=== PATIENT | female | born 1995 | race Caucasian/White ===

== ENCOUNTER 2016-07-31 10:00 | Observation (INO) | payer OTHER ==
[2016-07-31 10:13] VITALS: BP 114/62; PULSE 125
== END 2016-07-31 11:15 | disposition home or self-care (01) ==
LOC: OB 10:00 → UNDOADMOB 10:00 → UNDODISOB 11:15
PROVIDERS: ADMIT Family Medicine; ATTEND Family Medicine
DX: Z34.83 Encounter for supervision of other normal pregnancy, third trimester (principal)
CPT/HCPCS: 80307; G0378

== ENCOUNTER 2016-08-07 12:15 | Observation (INO) | payer OTHER ==
[2016-08-07] MEDS ORDERED: Sodium Chloride 0.9% 1000 ML 1,000 ML IV STA (12:40)
[2016-08-07 13:19] LABS: ALBUMIN 2.2 g/dL (3.4-5.0); ALKALINE PHOSPHATASE 178 U/L (46-116); ANION GAP 14.6 MEQ/L (5-15); BILIRUBIN,TOTAL 0.2 mg/dL (0.2-1.0); BLOOD UREA NITROGEN 6 mg/dL (9-20); CHLORIDE 106 mEq/L (98-107); Carbon Dioxide 23.1 mEq/L (21-32); Glucose 86 MG/DL (70-110); Potassium 4.1 mEq/L (3.5-5.1); SGOT/AST 19 U/L (15-37); SGPT/ALT 10 U/L (12-78); SODIUM 140 mEq/L (136-145); Total Protein 6.7 gm/dL (6.4-8.2)
[2016-08-07 13:31] VITALS: O2SAT 99
[2016-08-07 13:37] LABS: Mean Cell Volume 77.2 fl (78-100); Mean Platelet Volume 8.5 fl (6-9.5); Platelet Count 414 K/mm3 (150-450); Red Blood Count 3.56 M/mm3 (4.1-5.4); Red Cell Distribution Width 14.7 % (11.5-14.0); White Blood Count 14.7 K/mm3 (4.0-10.5)
[2016-08-07 13:41] LABS: Mean Corpuscular Hemoglobin 23.5 pg (26-32)
[2016-08-07 14:08] LABS: Bacteria Moderate; Clue Cells None Seen; Trichomonas Many
[2016-08-07 14:09] LABS: Yeast Moderate
[2016-08-07] MEDS: Lactated Ringers 1,000 ML IV SCH ×2 (14:10→23:21)
[2016-08-07 14:34] LABS: ANISOCYTOSIS 1+; BAND 3 % (0.0-2.0); Eosinophil 4 % (0.00-3.0); Hypochromia 2+; Platelet Estimate NORMAL (NORMAL); Polychromasia 2+; Total Cells Counted 100
[2016-08-07 14:35] LABS: Microcytosis 2+
[2016-08-07 14:45] LABS: COMPLETE URINE MICROSCOPIC? YES; Collection Type VOID
[2016-08-07 14:46] LABS: Bacteria MODERATE /HPF (NEGATIVE); Epithelial Cells MANY /HPF (FEW); Mucus MANY /HPF (NEGATIVE); Trichomonas PRESENT /HPF (NEGATIVE); Yeast MODERATE /HPF (NEGATIVE)
[2016-08-07 15:23] LABS: CHLAMYDIA URINE NEGATIVE; GC URINE NEGATIVE
[2016-08-07] MEDS: FLAGYL 500 MG IVPB 100 ML IV SCH (15:35)
[2016-08-07] MEDS ORDERED: ROCEPHIN 1 Gm-D5w 50 ml Bag** 50 ML IV SCH (18:30)
[2016-08-07] MEDS ORDERED: TYLENOL 325 MG PO PRN (19:24)
[2016-08-07] MEDS ORDERED: DIFLUCAN PO ONE (23:03)
[2016-08-07] MEDS ORDERED: Diflucan 100 MG ONE (23:07)
[2016-08-07] MEDS ORDERED: Diflucan 100 MG PO ONE (23:12)
[2016-08-08] MEDS: FLAGYL 500 MG IVPB 100 ML IV SCH (02:55)
[2016-08-08 05:20] LABS: Mean Cell Volume 77.3 fl (78-100); Mean Platelet Volume 8.3 fl (6-9.5); Platelet Count 379 K/mm3 (150-450); Red Blood Count 3.35 M/mm3 (4.1-5.4); Red Cell Distribution Width 14.5 % (11.5-14.0)
[2016-08-08 05:26] LABS: Mean Corpuscular Hemoglobin 23.2 pg (26-32)
[2016-08-08 05:45] LABS: ANISOCYTOSIS 1+; ATYPICAL LYMPHS 6 %; BAND 1 % (0.0-2.0); Eosinophil 3 % (0.00-3.0); Hypochromia 2+; Platelet Estimate NORMAL (NORMAL); Polychromasia 1+; Total Cells Counted 100
[2016-08-08] MEDS ORDERED: ROCEPHIN 1 Gm-D5w 50 ml Bag** 50 ML IV SCH (10:00)
[2016-08-08] MEDS ORDERED: Venofer 100 MG/5 ML*** 300 MG in Sodium Chloride 0.9% 250 ML 250 ML IV SCH (10:30)
[2016-08-08 13:36] VITALS: BP 110/57; PULSE 116
== END 2016-08-08 14:25 | disposition home or self-care (01) ==
LOC: MED SURG 12:15
PROVIDERS: ADMIT Family Medicine; ATTEND Family Medicine
DX: O26.893 Other specified pregnancy related conditions, third trimester (principal); R00.0 Tachycardia, unspecified; E86.0 Dehydration; O34.03 Maternal care for unspecified congenital malformation of uterus, third trimester; Q51.3 Bicornate uterus; A59.9 Trichomoniasis, unspecified; O23.43 Unspecified infection of urinary tract in pregnancy, third trimester; Z3A.37 37 weeks gestation of pregnancy; O99.013 Anemia complicating pregnancy, third trimester
CPT/HCPCS: 36415; 80053; 80307; 81000; 84550; 85025; 87081; 87086; 87210; 87491; 87591; G0378; J0696; J1756

== ENCOUNTER 2016-08-21 17:06 | Inpatient (IN) | payer MEDICAID ==
[2016-08-21] MEDS ORDERED: BRETHINE 1 MG/ML SQ PRN (19:55)
[2016-08-21 20:48] LABS: Mean Cell Volume 77.9 fl (78-100); Mean Platelet Volume 9.3 fl (6-9.5); Platelet Count 329 K/mm3 (150-450); Red Blood Count 3.89 M/mm3 (4.1-5.4); White Blood Count 9.7 K/mm3 (4.0-10.5)
[2016-08-21 20:52] LABS: Mean Corpuscular Hemoglobin 23.6 pg (26-32)
[2016-08-21] MEDS ORDERED: Cervidil 10 MG VAG SCH (22:00)
[2016-08-21 22:40] LABS: Eosinophil 3 % (0.00-3.0); Platelet Estimate NORMAL (NORMAL); Total Cells Counted 100
[2016-08-22] MEDS ORDERED: OFIRMEV IV ONE (08:00)
[2016-08-22] MEDS ORDERED: Pitocin 10 UNITS/ML IV ONE (08:00)
[2016-08-22] MEDS ORDERED: EPINEPHRINE 1:1000 1 ML AMP IV ONE (08:00)
[2016-08-22] MEDS ORDERED: Ephedrine Sulfate 50 MG/ML IV ONE (08:00)
[2016-08-22] MEDS ORDERED: Decadron 4 MG INJ IV ONE (08:00)
[2016-08-22] MEDS ORDERED: PHENYLEPHRINE HCL IV ONE (08:00)
[2016-08-22] MEDS ORDERED: Sodium Chloride 0.9(Preservative Free) 10 ML IJ ONE (08:00)
[2016-08-22] MEDS ORDERED: Zofran 4 MG/2 ML VIAL IV ONE (08:00)
[2016-08-22] MEDS: Lactated Ringers 1,000 ML IV SCH ×2 (08:58→14:30)
[2016-08-22] MEDS ORDERED: PITOCIN 30 UNITS/ LR 500 ML 500 ML IV SCH (09:00)
[2016-08-22] MEDS ORDERED: BICITRA 30 ML CUP PO SCH (18:00)
[2016-08-22] MEDS ORDERED: Pepcid 20 MG VIAL IV SCH (18:00)
[2016-08-22] MEDS ORDERED: Reglan 10 MG/2 ML IV SCH (18:00)
[2016-08-22] MEDS ORDERED: Lactated Ringers 1,000 ML IV SCH (18:00)
[2016-08-22 18:35] LABS: Mean Cell Volume 77.3 fl (78-100); Mean Corpuscular Hemoglobin 24.3 pg (26-32); Mean Platelet Volume 9.1 fl (6-9.5); Platelet Count 332 K/mm3 (150-450); Red Blood Count 4.19 M/mm3 (4.1-5.4); Red Cell Distribution Width 18.3 % (11.5-14.0); White Blood Count 12.3 K/mm3 (4.0-10.5)
[2016-08-22 18:41] LABS: INR 0.97 (0.8-3.0); PROTIME 10.9 SECONDS (9.95-12.35)
[2016-08-22 18:44] LABS: PTT 23.5 SECONDS (25.3-37.0)
[2016-08-22] MEDS ORDERED: KEFZOL 1 GM ONE (19:21)
[2016-08-22] MEDS ORDERED: BENADRYL 50 MG/ML IV PRN (20:50)
[2016-08-22] MEDS ORDERED: CLARITIN 10 MG PO PRN (20:50)
[2016-08-22] MEDS ORDERED: HOLD NARCOTIC ANALGESICS AND SEDATIVES X24 HR MC PRN (20:50)
[2016-08-22] MEDS ORDERED: Zofran 4 MG/2 ML VIAL IV PRN (20:50)
[2016-08-22] MEDS ORDERED: Nubain 10 MG/ML IV PRN (20:50)
[2016-08-22] MEDS ORDERED: Sodium Chloride 0.9% 10 ML FLUSH Syringe IJ PRN (20:50)
[2016-08-22] MEDS ORDERED: DEMEROL 50 MG IV PRN (20:50)
[2016-08-22] MEDS ORDERED: MORPHINE SULFATE 2 MG INJ IV PRN (20:50)
[2016-08-22] MEDS ORDERED: Narcan 0.4 MG/ML IV PRN (20:50)
[2016-08-22] MEDS ORDERED: ACYCLOVIR 800 MG PO SCH (22:00)
[2016-08-22] MEDS ORDERED: Dermoplast Spray TP PRN (23:26)
[2016-08-22] MEDS ORDERED: LANSINOH 40 GM TOP PRN (23:26)
[2016-08-22] MEDS ORDERED: Dulcolax 10 MG SUPP PR PRN (23:26)
[2016-08-22] MEDS ORDERED: Anucort-HC SUPPOSITORY PR PRN (23:26)
[2016-08-22] MEDS ORDERED: Restoril 15 MG PO PRN (23:26)
[2016-08-22] MEDS ORDERED: CORTISONE 1% CREAM TP PRN (23:26)
[2016-08-22] MEDS ORDERED: Mylicon 80MG PO PRN (23:26)
[2016-08-22] MEDS ORDERED: TYLENOL EXTRA STRENGTH 500 MG PO PRN (23:26)
[2016-08-22] MEDS ORDERED: Ambien 10 MG PO PRN (23:26)
[2016-08-22] MEDS ORDERED: TUCKS TP PRN (23:26)
[2016-08-22 23:44] LABS: COMPLETE URINE MICROSCOPIC? NO; Collection Type CATH
[2016-08-23] MEDS: Dextrose 5%-Lr IV Solution 1000 ML 1,000 ML IV SCH ×2 (01:01→09:33)
[2016-08-23 05:53] LABS: Mean Cell Volume 77.7 fl (78-100); Mean Platelet Volume 9.4 fl (6-9.5); Platelet Count 314 K/mm3 (150-450); Red Blood Count 3.49 M/mm3 (4.1-5.4); Red Cell Distribution Width 17.7 % (11.5-14.0); White Blood Count 14.1 K/mm3 (4.0-10.5)
[2016-08-23] MEDS ORDERED: Astramorph-Pf 5 MG/10 ML IV ONE (08:00)
[2016-08-23] MEDS ORDERED: SUBLIMAZE 100 MCG/2 ML IV ONE (08:00)
[2016-08-23] MEDS ORDERED: Adacel Vial IM ONE (09:00)
--- NOTE | 2016-08-23 09:12 | OP ---
SURGERY DATE/TIME: 08/22/20161954 PREOPERATIVE DIAGNOSES: 1) Term intrauterine . 2) History of herpes infection. 3) Possible developing recurrent herpes infection. POSTOPERATIVE DIAGNOSES: 1) Term intrauterine . 2) History of herpes infection. 3) Possible developing recurrent herpes infection. 4) Delivered. PROCEDURE: Primary lower uterine segment transverse incision section. SURGEON: Dr. Rodney. ANESTHESIA: Spinal. HISTORY: The patient is a 20 year old white female who presented to the hospital for induction for term intrauterine . However during the induction the patient reported that she felt like she was having some burning and tingling in an area where she previously had herpes infection and therefore we were concerned for the patient developing herpetic infection and the danger of developing the baby through the vaginal area was too great for the possibility of transmission of herpes to the baby. The patient was therefore discussed the risks of the procedure including risk of wound infection, bleeding requiring transfusion, and possible injury to any intra-abdominal organs. The patient verbalized her understanding and desired to have the procedure performed. DESCRIPTION OF PROCEDURE: The patient was prepped and draped in the supine position. After adequate regional anesthesia was confirmed, a Pfannenstiel incision was made and carried down sharply through the fascia which was divided in a horizontal fashion. The rectus muscles were then bluntly and sharply dissected away from the overlying fascia and bluntly retracted laterally. The peritoneal cavity was then entered. A bladder flap was developed and the bladder was retracted inferiorly. The uterus was scored in a horizontal fashion and entered in the midline. The wound was extended using blunt dissection. A white male infant was delivered through the abdominal wound. The cord was doubly clamped and divided between the clamps and the baby was handed off for further care. The placenta was then manually removed from the uterus. 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 The uterine wound was then repaired using 1-0 chromic suture in a running, interlocking fashion. The cul-de-sac area was then swabbed clear of blood and amniotic fluid and the uterus was replaced in the abdominal cavity. Paracolic gutters were also swabbed clear of blood and amniotic fluid. The peritoneum was then repaired using 3-0 chromic suture in a running fashion. The fascia was repaired using 0 Vicryl suture in a running fashion. The skin was reapproximated using 4-0 Vicryl suture in a subcuticular fashion and reinforced with Steri-Strips. The sponge, needle and instrument count was reported as correct at the end of the procedure. Estimated blood loss was 500 cc. The patient was taken back to the recovery room in good condition.
[2016-08-23] MEDS: ZOVIRAX 800 MG PO SCH ×3 (09:34→19:59)
[2016-08-23] MEDS: PERCOCET TABLET 5/325MG PO PRN ×3 (09:34→19:59)
[2016-08-23] MEDS: FERREX 150 PO SCH (09:34)
[2016-08-23] MEDS: Colace 100 MG PO SCH ×2 (09:34→19:58)
[2016-08-23 09:47] VITALS: O2SAT 97
[2016-08-23] MEDS: MOTRIN 400 MG PO PRN (17:29)
[2016-08-23] MEDS ORDERED: MOTRIN 400 MG ONE (17:29)
[2016-08-23] MEDS ORDERED: PERCOCET TABLET 5/325MG ONE (19:58)
[2016-08-23] MEDS ORDERED: Colace 100 MG ONE (19:58)
[2016-08-23] MEDS ORDERED: DEMEROL 75 MG IM PRN (20:30)
[2016-08-23] MEDS ORDERED: Phenergan 25 MG INJ IM PRN (20:30)
[2016-08-24] MEDS ORDERED: Tylenol #3 Tablet ONE (05:35)
[2016-08-24] MEDS: Tylenol #3 Tablet PO PRN ×4 (05:35→19:24)
[2016-08-24 05:59] LABS: Mean Cell Volume 78.8 fl (78-100); Mean Platelet Volume 9.2 fl (6-9.5); Platelet Count 316 K/mm3 (150-450); Red Blood Count 3.06 M/mm3 (4.1-5.4); Red Cell Distribution Width 18.1 % (11.5-14.0); White Blood Count 12.3 K/mm3 (4.0-10.5)
[2016-08-24 06:31] LABS: Mean Corpuscular Hemoglobin 24.1 pg (26-32)
[2016-08-24 08:32] LABS: Total Cells Counted 100
[2016-08-24 08:33] LABS: ANISOCYTOSIS 2+; Platelet Estimate NORMAL (NORMAL); Poikilocytosis 1+
[2016-08-24] MEDS: MOTRIN 400 MG PO PRN ×2 (08:37→18:13)
[2016-08-24] MEDS: FERREX 150 PO SCH (08:38)
[2016-08-24] MEDS: Colace 100 MG PO SCH (08:38)
[2016-08-24] MEDS: ZOVIRAX 800 MG PO SCH ×2 (10:11→14:20)
[2016-08-24 14:16] VITALS: PULSE 102
--- NOTE | 2016-08-24 18:03 | PCM.DS ---
Discharge Summary Date of Admission: 08/22/16 17:57 Admitting Physician: ANGELI MORRELL Consults: Consults on Case 08/22/16 17:54 Notify Anesthesia Provider ROUTINE Primary Care Provider: ANGELI MORRELL Allergies Allergies strawberry [[place]] Allergy (Verified 12/17/14 20:38) WATERMELON Allergy (Uncoded 03/23/14 19:00) Hospital Summary - Hospital Course Hospital Course: Pt admitted for term IOL, had pitocin all day without cervical change. She then stated that she felt she was getting a herpetic outbreak around her vagina so the decision was made to go to . For full details, see Dr. Rodney' s operative note. Her hgb was 8.4 after delivery and 7.4 the day of admission; pt asymptomatic. Discharged to home on 2nd post operative day. - Vitals & Intake/Output Vital Signs: Vital Signs Temperature 97.6 F 08/24/16 14:19 Pulse Rate 102 H 08/24/16 14:00 Respiratory Rate 18 08/24/16 14:00 Blood Pressure 110/63 08/24/16 14:00 O2 Sat by Pulse Oximetry 97 08/23/16 09:00 Intake & Output: Intake & Output 08/22/16 08/23/16 08/24/16 08/25/16 11:59 11:59 11:59 11:59 Intake Total 1200 7618 3500 Output Total 1900 1100 Balance 1200 5718 2400 Weight 96.615 kg 96.615 kg - Lab Result Diagrams: 08/24/16 05:10 Lab Results-Last 24 Hrs: Lab Results-Last 24 Hours 08/24/16 Range/Units 05:10 WBC 12.3 H (4.0-10.5) K/mm3 RBC 3.06 L (4.1-5.4) M/mm3 Hgb 7.4 L (12.0-16.0) gm/dl Hct 24.1 L (35-47) % MCV 78.8 (78-100) fl MCH 24.1 L (26-32) pg MCHC 30.7 L (32-36) g/dl RDW 18.1 H (11.5-14.0) % Plt Count 316 (150-450) K/mm3 MPV 9.2 (6-9.5) fl Segmented Neutrophils 86 H (36.0-66.0) % Lymphocytes (Manual) 11 L (24-44) % Monocytes (Manual) 3 (0.0-12.0) % Platelet Estimate NORMAL (NORMAL) Poikilocytosis 1+ Anisocytosis 2+ Micro Results-Entire Visit: Microbiology 08/22/16 20:18 Urine Culture - Final Urine, Catheterized NO GROWTH Discharge Exam General Appearance: no apparent distress Neurologic Exam: alert, oriented x 3, cooperative Skin Exam: normal color, warm, dry Respiratory Exam: normal breath sounds, lungs clear Cardiovascular Exam: regular rate/rhythm, normal heart sounds Gastrointestinal/Abdomen Exam: soft, other (fundus firm under umbilicus) Final Diagnosis/Problem List - Final Discharge Diagnosis/Problem (1) delivery delivered Current Visit: Yes Status: Acute Assessment & Plan: Doing well, home today on T3. (2) Anemia Current Visit: Yes Status: Acute Assessment & Plan: Asymptomatic. home on FeSO4 325mg 1 po BID. (3) Herpes Current Visit: Yes Status: Acute Assessment & Plan: Home dose acyclovir ok. - Discharge Disposition: Still a Patient Condition: Stable Prescriptions: New Ferrous Sulfate 325 mg [Feosol 325 mg] 325 mg PO BID #60 tablet Codeine Phosphate/APAP #3 [Tylenol #3 Tablet] 1 - 2 tab PO Q4H PRN PRN # 30 tablet PRN Reason: Severe Pain Continue Acyclovir 800 mg [Zovirax 800 mg] 1 tab PO TID Breast Pump 1 each UD #1 each Follow up with: ANGELI MORRELL [Primary Care Provider] - 1 Week
[2016-08-24 22:50] VITALS: BP 130/72
== END 2016-08-24 21:10 | disposition home or self-care (01) | DRG 766 ==
LOC: OB 17:06 → OBSVTOIN 17:57 → INTOOBSV 17:57 → OBSVTOIN 08-22 17:57 → UNDODISIN 08-23 15:35
PROVIDERS: ADMIT Family Medicine; ATTEND Family Medicine
PROC: 10D00Z1 Extraction of Products of Conception, Low, Open Approach (ICD-10-PCS; principal; 2016-08-22)
DX: O98.313 Other infections with a predominantly sexual mode of transmission complicating pregnancy, third trimester (principal); A60.09 Herpesviral infection of other urogenital tract; Z3A.40 40 weeks gestation of pregnancy; Z37.0 Single live birth
CPT/HCPCS: 01961; 36415; 62311; 64425; 80307; 81002; 85025; 85027; 85610; 85730; 86850; 86900; 86901; 86922; 87086; 90471; 90715; 94799; G0378; J0171; J0690; J1100; J1200; J2274; J2300; J2370; J2405; J2590; J3010; L0625

== ENCOUNTER 2017-08-28 10:05 | Observation (INO) | payer OTHER ==
[2017-08-28 10:58] LABS: Hematocrit 30.3 % (35-47); Hemoglobin 9.7 gm/dl (12.0-16.0); Mean Cell Volume 85.4 fl (78-100); Mean Corpuscular Hemoglobin 27.3 pg (26-32); Mean Platelet Volume 8.8 fl (6-9.5); Platelet Count 295 K/mm3 (150-450); Red Blood Count 3.55 M/mm3 (4.1-5.4); Red Cell Distribution Width 13.5 % (11.5-14.0); White Blood Count 13.4 K/mm3 (4.0-10.5)
[2017-08-28 11:14] VITALS: BP 115/59; PULSE 103
[2017-08-28 11:23] LABS: ALBUMIN 2.6 g/dL (3.4-5.0); ALKALINE PHOSPHATASE 82 U/L (46-116); ANION GAP 13.5 MEQ/L (5-15); BLOOD UREA NITROGEN 5 mg/dL (9-20); CHLORIDE 105 mEq/L (98-107); Calcium 8.4 mg/dL (8.5-10.1); Carbon Dioxide 21.5 mEq/L (21-32); Creatinine 1 0.59 mg/dl (0.55-1.30); EST GLOMERULAR FILTRATION RATE > 60 ML/MIN; Glucose 92 MG/DL (70-110); Potassium 3.8 mEq/L (3.5-5.1); SGOT/AST 16 U/L (15-37); SGPT/ALT 18 U/L (12-78); SODIUM 136 mEq/L (136-145); Total Protein 6.6 gm/dL (6.4-8.2)
[2017-08-28 11:37] LABS: Amphetamine,Urine NEG. (NEGATIVE); Barbiturate,Urine NEG. (NEGATIVE); Benzodiazepine,Urine NEG. (NEGATIVE); Cocaine,Urine NEG. (NEGATIVE); Methadone,Urine NEG. (NEGATIVE); Opiate,Urine NEG. (NEGATIVE); PCP,Urine NEG. (NEGATIVE); THC,Urine NEG. (NEGATIVE)
[2017-08-28 11:44] LABS: Appearance CLOUDY (CLEAR); Bilirubin NEGATIVE (NEGATIVE); Blood NEGATIVE Ery/ul (0-5); Glucose NEGATIVE (NEGATIVE); Ketones TRACE (NEGATIVE); Leukocyte Esterase TRACE (NEGATIVE); Nitrite NEGATIVE (NEGATIVE); Protein,Urine Dip NEGATIVE (Negative); Urobilinogen NORMAL mg/dL (0-1)
[2017-08-28 11:45] LABS: Bacteria FEW /HPF (NEGATIVE); Epithelial Cells MANY /HPF (FEW); Mucus MANY /HPF (NEGATIVE)
--- NOTE | 2017-08-28 12:07 | XRAY ---
Indication: Left lower quadrant pain. 2-dimensional OB ultrasound performed. Comparison: June 22, 2017. Again there is a single viable intrauterine now in cephalic presentation. Normal four-chamber heart with heart rate 121 BPM. Normal three-vessel cord and cord insertion. Visualized stomach, kidneys, and bladder unremarkable. Placenta is again anterior fundal without abnormal retroplacental fluid collection. BPD measures 7.87 cm corresponding to 31 weeks 4 day. HC measures 27.93 cm corresponding to 30 weeks 4 days. AC measures 26.52 cm corresponding to 30 weeks 4 days. FL measures 5.85 cm corresponding to 30 weeks 4 days. XIMENA is 14.6 cm. Impression: Again single viable intrauterine with mean gestational age 30 weeks 6 days. Normal progression in . No new/acute findings.
[2017-08-28 13:11] LABS: Eosinophil 2 % (0.00-3.0); Lymphocytes 25 % (24-44); Monocyte 4 % (0.0-12.0); Neutrophils 69 % (36.0-66.0); Total Cells Counted 100
[2017-08-28 13:12] LABS: Platelet Estimate NORMAL (NORMAL)
== END 2017-08-28 12:10 | disposition home or self-care (01) ==
LOC: OB 10:05
PROVIDERS: ADMIT Family Medicine; ATTEND Family Medicine
DX: Z34.83 Encounter for supervision of other normal pregnancy, third trimester (principal)
CPT/HCPCS: 36415; 76805; 80053; 80307; 81000; 85007; 85027; G0378

== ENCOUNTER 2017-10-12 12:31 | Observation (INO) | payer OTHER ==
[2017-10-12] MEDS ORDERED: Lactated Ringers 1,000 ML IV ONE (12:36)
[2017-10-12 13:34] LABS: Hematocrit 29.9 % (35-47); Mean Cell Volume 83.3 fl (78-100); Mean Corpuscular Hgb Concent. 33.4 g/dl (32-36); Mean Platelet Volume 8.9 fl (6-9.5); Platelet Count 277 K/mm3 (150-450); Red Blood Count 3.59 M/mm3 (4.1-5.4); Red Cell Distribution Width 14.7 % (11.5-14.0); White Blood Count 14.4 K/mm3 (4.0-10.5)
[2017-10-12 13:36] LABS: Mean Corpuscular Hemoglobin 27.8 pg (26-32)
[2017-10-12 14:06] LABS: BAND 6 % (0.0-2.0); Basophil 1 % (0.0-1.0); Eosinophil 3 % (0.00-3.0); Lymphocytes 14 % (24-44); Metamyelocyte 1 %; Monocyte 2 % (0.0-12.0); Neutrophils 73 % (36.0-66.0); Total Cells Counted 100
[2017-10-12 14:07] LABS: Macrocytosis 1+; Platelet Estimate NORMAL (NORMAL); Poikilocytosis 1+; Polychromasia 1+
[2017-10-12 14:08] LABS: ANISOCYTOSIS 2+
[2017-10-12 14:09] LABS: Granulocyte Absolute (ANC) 11.5 (1.4-6.9)
[2017-10-12] MEDS: Lactated Ringers 1,000 ML IV SCH ×2 (14:17→23:15)
[2017-10-12 14:18] LABS: ALBUMIN 3.4 g/dL (3.5-5.0); ALKALINE PHOSPHATASE 118 U/L (38-126); ANION GAP 13.5 MEQ/L (5-15); BLOOD UREA NITROGEN 6 mg/dL (7-17); CHLORIDE 107 mmol/L (98-107); Calcium 8.8 mg/dL (8.4-10.2); Carbon Dioxide 19 mmol/L (22-30); Creatinine 1 0.52 mg/dL (0.52-1.04); Glucose 84 mg/dL (74-106); Potassium 4.1 mmol/L (3.5-5.1); SGOT/AST 16 U/L (14-36); SGPT/ALT 12 U/L (0-35); SODIUM 136 mmol/L (137-145); Total Protein 6.4 g/dL (6.3-8.2)
[2017-10-12 15:34] LABS: Appearance CLEAR (CLEAR); Bilirubin NEGATIVE (NEGATIVE); Blood NEGATIVE Ery/ul (0-5); Glucose NEGATIVE (NEGATIVE); Ketones NEGATIVE (NEGATIVE); Leukocyte Esterase MODERATE (NEGATIVE); Nitrite NEGATIVE (NEGATIVE); Protein,Urine Dip NEGATIVE (Negative); Specific Gravity 1.005 (1.005-1.025); Urobilinogen NORMAL mg/dL (0-1)
[2017-10-12 15:39] LABS: Bacteria MANY /HPF (NEGATIVE); Epithelial Cells MANY /HPF (FEW)
[2017-10-12 15:49] LABS: Amphetamine,Urine NEGATIVE (NEGATIVE); Barbiturate,Urine NEGATIVE (NEGATIVE); Benzodiazepine,Urine NEGATIVE (NEGATIVE); Cocaine,Urine NEGATIVE (NEGATIVE); Methadone,Urine NEGATIVE (NEGATIVE); Opiate,Urine NEGATIVE (NEGATIVE); PCP,Urine NEGATIVE (NEGATIVE); THC,Urine NEGATIVE (NEGATIVE)
[2017-10-12] MEDS ORDERED: ROCEPHIN 1 Gm-D5w 50 ml Bag** 1 G/50 ML IVPB IV SCH (16:15)
[2017-10-12] MEDS: TYLENOL 325 MG PO PRN (21:11)
--- NOTE | 2017-10-12 21:38 | XRAY ---
Indication: Right flank pain. Two-dimensional renal sonogram performed. Comparison: None Both kidneys normal in reniform shape with normal color perfusion. Right kidney measures 12.3 x 5.7 x 5.8 cm and the left measures 11.5 x 6.7 x 6.0 cm. No suspicious solid/cystic mass or hydronephrosis. Cortical medullary differentiation preserved without cortical thinning. Images of the urinary bladder demonstrates normal left ureteral jet. Right ureteral jet not seen within the allotted exam time. Impression: Negative renal sonogram.
--- NOTE | 2017-10-12 21:41 | XRAY ---
Indication: well-being. 2-dimensional OB ultrasound performed. Comparison: August 28, 2017. Again there is a single viable intrauterine in cephalic presentation. Normal four-chamber heart with heart rate 124 BPM. Normal three-vessel cord. Visualized stomach, kidneys, and bladder unremarkable. Placenta is again fundal without abnormal retroplacental fluid collection. BPD measures 8.89 cm corresponding to 36 weeks 0 day. HC measures 31.65 cm corresponding to 35 weeks 4 days. AC measures 32.87 cm corresponding to 36 weeks 5 days. FL measures 7.22 cm corresponding to 37 weeks 0 day. XIMENA is 13.4 cm. Impression: Again single viable intrauterine with mean gestational age 36 weeks 2 days. Normal progression of .
[2017-10-13] MEDS: TYLENOL 325 MG PO PRN (10:29)
--- NOTE | 2017-10-13 10:37 | PCM.DS ---
Discharge Summary Date of Admission: 10/12/17 12:31 Admitting Physician: ANGELI MORRELL Primary Care Provider: ANGELI MORRELL Allergies Allergies strawberry [[place]] Allergy (Verified 10/12/17 16:21) WATER[place]ELON Allergy (Uncoded 03/23/14 19:00) Hospital Summary - Hospital Course Hospital Course: 21yo at 37 wks EGA here from office with c/o low back and abd pain, no leakage of fluids. no vaginal bleeding, no contractions on EFM, FHR reassuring. cervix closed per nursing. OB ultrasound reassuring with XIMENA 13 and renal ultrasound is normal. urine with moderate schuyler est. feels better this am after hydration - Vitals & Intake/Output Vital Signs: Vital Signs Temperature 98.1 F 10/13/17 04:00 Pulse Rate 93 H 10/13/17 04:00 Respiratory Rate 18 10/13/17 04:00 Blood Pressure 126/68 10/13/17 04:00 O2 Sat by Pulse Oximetry Intake & Output: Intake & Output 10/10/17 10/11/17 10/12/17 10/13/17 11:59 11:59 11:59 11:59 Intake Total 3112 Balance 3112 Weight 100.244 kg - Lab Result Diagrams: 10/12/17 13:25 10/12/17 13:25 Lab Results-Last 24 Hrs: Lab Results-Last 24 Hours 10/12/17 10/12/17 10/12/17 Range/Units 13:25 13:25 15:28 WBC 14.4 H (4.0-10.5) K/mm3 RBC 3.59 L (4.1-5.4) M/mm3 Hgb 10.0 L (12.0-16.0) gm/dl Hct 29.9 L (35-47) % MCV 83.3 (78-100) fl MCH 27.8 (26-32) pg MCHC 33.4 (32-36) g/dl RDW 14.7 H (11.5-14.0) % Plt Count 277 (150-450) K/mm3 MPV 8.9 (6-9.5) fl Absolute Granulocytes 11.5 H (1.4-6.9) Segmented Neutrophils 73 H (36.0-66.0) % Band Neutrophils 6 H (0.0-2.0) % Lymphocytes (Manual) 14 L (24-44) % Monocytes (Manual) 2 (0.0-12.0) % Eosinophils (Manual) 3 (0.00-3.0) % Basophils (Manual) 1 (0.0-1.0) % Metamyelocytes 1 % Differential Comment ABNORMAL Platelet Estimate NORMAL (NORMAL) Polychromasia 1+ Poikilocytosis 1+ Anisocytosis 2+ Macrocytosis 1+ Sodium 136 L (137-145) mmol/L Potassium 4.1 (3.5-5.1) mmol/L Chloride 107 (98-107) mmol/L Carbon Dioxide 19 L (22-30) mmol/L Anion Gap 13.5 (5-15) MEQ/L BUN 6 L (7-17) mg/dL Creatinine 0.52 (0.52-1.04) mg/dL Estimated GFR > 60.0 ML/MIN Glucose 84 (74-106) mg/dL Calcium 8.8 (8.4-10.2) mg/dL Total Bilirubin 0.20 (0.2-1.3) mg/dL AST 16 (14-36) U/L ALT 12 (0-35) U/L Alkaline Phosphatase 118 (38-126) U/L Serum Total Protein 6.4 (6.3-8.2) g/dL Albumin 3.4 L (3.5-5.0) g/dL Ur Collection Type CLEAN CATCH Urine Color YELLOW (YELLOW) Urine Appearance CLEAR (CLEAR) Urine pH 6.0 (5-6) Ur Specific Vici 1.005 (1.005-1.025) Urine Protein NEGATIVE (Negative) Urine Ketones NEGATIVE (NEGATIVE) Urine Blood NEGATIVE (0-5) Ilya/ul Urine Nitrite NEGATIVE (NEGATIVE) Urine Bilirubin NEGATIVE (NEGATIVE) Urine Urobilinogen NORMAL (0-1) mg/dL Ur Leukocyte Esterase MODERATE (NEGATIVE) Urine Microscopic RBC 2-5 (0-2) /HPF Urine Microscopic WBC 2-5 (0-5) /HPF Ur Epithelial Cells MANY (FEW) /HPF Urine Bacteria MANY (NEGATIVE) /HPF Urine Glucose NEGATIVE (NEGATIVE) mg/dL Urine Opiates Level (NEGATIVE) Ur Methadone (NEGATIVE) Urine Barbiturates (NEGATIVE) Ur Phencyclidine (PCP) (NEGATIVE) Urine Amphetamine (NEGATIVE) U Benzodiazepine Level (NEGATIVE) Urine Cocaine (NEGATIVE) Urine Marijuana (THC) (NEGATIVE) Specimen Received 10/12/17 1530 10/12/17 Range/Units 15:35 WBC (4.0-10.5) K/mm3 RBC (4.1-5.4) M/mm3 Hgb (12.0-16.0) gm/dl Hct (35-47) % MCV (78-100) fl MCH (26-32) pg MCHC (32-36) g/dl RDW (11.5-14.0) % Plt Count (150-450) K/mm3 MPV (6-9.5) fl Absolute Granulocytes (1.4-6.9) Segmented Neutrophils (36.0-66.0) % Band Neutrophils (0.0-2.0) % Lymphocytes (Manual) (24-44) % Monocytes (Manual) (0.0-12.0) % Eosinophils (Manual) (0.00-3.0) % Basophils (Manual) (0.0-1.0) % Metamyelocytes % Differential Comment Platelet Estimate (NORMAL) Polychromasia Poikilocytosis Anisocytosis Macrocytosis Sodium (137-145) mmol/L Potassium (3.5-5.1) mmol/L Chloride (98-107) mmol/L Carbon Dioxide (22-30) mmol/L Anion Gap (5-15) MEQ/L BUN (7-17) mg/dL Creatinine (0.52-1.04) mg/dL Estimated GFR ML/MIN Glucose (74-106) mg/dL Calcium (8.4-10.2) mg/dL Total Bilirubin (0.2-1.3) mg/dL AST (14-36) U/L ALT (0-35) U/L Alkaline Phosphatase (38-126) U/L Serum Total Protein (6.3-8.2) g/dL Albumin (3.5-5.0) g/dL Ur Collection Type Urine Color (YELLOW) Urine Appearance (CLEAR) Urine pH (5-6) Ur Specific Vici (1.005-1.025) Urine Protein (Negative) Urine Ketones (NEGATIVE) Urine Blood (0-5) Ilya/ul Urine Nitrite (NEGATIVE) Urine Bilirubin (NEGATIVE) Urine Urobilinogen (0-1) mg/dL Ur Leukocyte Esterase (NEGATIVE) Urine Microscopic RBC (0-2) /HPF Urine Microscopic WBC (0-5) /HPF Ur Epithelial Cells (FEW) /HPF Urine Bacteria (NEGATIVE) /HPF Urine Glucose (NEGATIVE) mg/dL Urine Opiates Level NEGATIVE (NEGATIVE) Ur Methadone NEGATIVE (NEGATIVE) Urine Barbiturates NEGATIVE (NEGATIVE) Ur Phencyclidine (PCP) NEGATIVE (NEGATIVE) Urine Amphetamine NEGATIVE (NEGATIVE) U Benzodiazepine Level NEGATIVE (NEGATIVE) Urine Cocaine NEGATIVE (NEGATIVE) Urine Marijuana (THC) NEGATIVE (NEGATIVE) Specimen Received - Radiology Exams Ordered Rad Exams-Entire Visit: Radiology Procedures Category Date Time Status KIDNEY [US] Urgent Exams 10/12/17 17:26 Completed OB >14 WKS 1st GESTATION [US] Urgent Exams 10/12/17 17:26 Completed Discharge Exam General Appearance: no apparent distress, alert Neurologic Exam: alert, oriented x 3 Respiratory Exam: normal breath sounds, lungs clear, No respiratory distress Cardiovascular Exam: regular rate/rhythm, normal heart sounds Gastrointestinal/Abdomen Exam: soft, normal bowel sounds, other (gravid), No tenderness Extremity Exam: normal inspection, normal range of motion Back Exam: normal inspection, normal range of motion, No CVA tenderness, No vertebral tenderness Final Diagnosis/Problem List - Final Discharge Diagnosis/Problem (1) UTI (urinary tract infection) in in third trimester Current Visit: Yes Status: Acute Assessment & Plan: home on po augmentin, urine culture and sensitivity pending. (2) Bicornuate uterus Current Visit: Yes Status: Acute (3) Abdominal pain affecting Current Visit: Yes Status: Acute - Discharge Disposition: Home, Self-Care Condition: Stable Prescriptions: New Amoxicillin/Potassium Clav [Augmentin 500-125 Tablet] 1 each PO TID #21 tablet Follow up with: ANGELI MORRELL [Primary Care Provider] - 1 Week
[2017-10-13 11:22] VITALS: BP 124/78; PULSE 108
== END 2017-10-13 10:45 | disposition home or self-care (01) ==
LOC: OB 12:31
PROVIDERS: ADMIT Family Medicine; ATTEND Family Medicine
DX: O23.43 Unspecified infection of urinary tract in pregnancy, third trimester (principal); Z3A.37 37 weeks gestation of pregnancy; O34.03 Maternal care for unspecified congenital malformation of uterus, third trimester; Q51.3 Bicornate uterus; R10.9 Unspecified abdominal pain
CPT/HCPCS: 36415; 76770; 76805; 80053; 80307; 81000; 85025; G0378; 59025; J0696; A9270-GY

== ENCOUNTER 2017-10-31 05:20 | Inpatient (IN) | payer OTHER ==
[~2017-10-31 05:20] MED LIST: BICITRA 30 ML CUP PO SCH; Lactated Ringers 1,000 ML IV ONE; Lactated Ringers 1,000 ML IV SCH; Pepcid 20 MG VIAL IV SCH; Reglan 10 MG/2 ML IV SCH
[2017-10-31 05:45] LABS: Hematocrit 30.9 % (35-47); Mean Cell Volume 79.4 fl (78-100); Mean Corpuscular Hemoglobin 25.7 pg (26-32); Mean Corpuscular Hgb Concent. 32.4 g/dl (32-36); Platelet Count 286 K/mm3 (150-450); Red Blood Count 3.89 M/mm3 (4.1-5.4); Red Cell Distribution Width 14.9 % (11.5-14.0); White Blood Count 13.5 K/mm3 (4.0-10.5)
[2017-10-31 06:04] LABS: INR 0.96 (0.8-3.0)
[2017-10-31 06:07] LABS: PTT 21.8 SECONDS (25.3-37.0)
[2017-10-31] MEDS ORDERED: CEFAZOLIN 2 GM-D5W BAG** 2 GM/50 ML ML IV ONE (06:11)
[2017-10-31] MEDS ORDERED: CEFAZOLIN 2 GM-D5W BAG** 2 GM/50 ML ML IV SCH (06:30)
[2017-10-31 06:35] LABS: ABO TYPING AB; Antibody Screen NEGATIVE (NEGATIVE); RH TYPING POSITIVE
[2017-10-31 07:33] LABS: Appearance CLEAR (CLEAR); Bilirubin NEGATIVE (NEGATIVE); Glucose NEGATIVE (NEGATIVE); Ketones NEGATIVE (NEGATIVE); Leukocyte Esterase TRACE (NEGATIVE); Nitrite NEGATIVE (NEGATIVE); Protein,Urine Dip NEGATIVE (Negative); Specific Gravity 1.015 (1.005-1.025); Urobilinogen NORMAL mg/dL (0-1)
[2017-10-31 07:34] LABS: Bacteria FEW /HPF (NEGATIVE); Epithelial Cells MODERATE /HPF (FEW); Mucus SLIGHT /HPF (NEGATIVE)
[2017-10-31 07:43] LABS: Amphetamine,Urine NEGATIVE (NEGATIVE); Barbiturate,Urine NEGATIVE (NEGATIVE); Benzodiazepine,Urine NEGATIVE (NEGATIVE); Cocaine,Urine NEGATIVE (NEGATIVE); Methadone,Urine NEGATIVE (NEGATIVE); Opiate,Urine NEGATIVE (NEGATIVE); PCP,Urine NEGATIVE (NEGATIVE); THC,Urine NEGATIVE (NEGATIVE)
[2017-10-31] MEDS ORDERED: HOLD NARCOTIC ANALGESICS AND SEDATIVES X24 HR MC PRN (08:00)
[2017-10-31] MEDS ORDERED: BENADRYL 50 MG/ML IV PRN (08:00)
[2017-10-31] MEDS ORDERED: Nubain 10 MG/ML IV PRN (08:00)
[2017-10-31] MEDS ORDERED: Zofran 4 MG/2 ML VIAL IV PRN (08:00)
[2017-10-31] MEDS ORDERED: DEMEROL 50 MG IV PRN (08:00)
[2017-10-31] MEDS ORDERED: Narcan 0.4 MG/ML IV PRN (08:00)
[2017-10-31] MEDS ORDERED: CLARITIN 10 MG PO PRN (08:00)
[2017-10-31] MEDS ORDERED: MORPHINE SULFATE 2 MG INJ IV PRN (08:00)
[2017-10-31] MEDS: Dextrose 5%-Lr IV Solution 1000 ML 1,000 ML IV SCH ×2 (09:00→16:03)
[2017-10-31] MEDS ORDERED: Mylicon 80MG PO PRN (09:00)
[2017-10-31] MEDS ORDERED: Dermoplast Spray TP PRN (09:00)
[2017-10-31] MEDS ORDERED: CORTISONE 1% CREAM TP PRN (09:00)
[2017-10-31] MEDS ORDERED: TYLENOL EXTRA STRENGTH 500 MG PO PRN (09:00)
[2017-10-31] MEDS ORDERED: LANSINOH 40 GM TOP PRN (09:00)
[2017-10-31] MEDS ORDERED: Anucort-HC SUPPOSITORY PR PRN (09:00)
[2017-10-31] MEDS ORDERED: Dulcolax 10 MG SUPP PR PRN (09:00)
[2017-10-31 09:30] LABS: Appearance CLEAR (CLEAR); Bilirubin NEGATIVE (NEGATIVE); Blood 50 Ery/ul (0-5); Glucose NEGATIVE (NEGATIVE); Ketones NEGATIVE (NEGATIVE); Leukocyte Esterase TRACE (NEGATIVE); Nitrite NEGATIVE (NEGATIVE); Protein,Urine Dip NEGATIVE (Negative); Specific Gravity 1.015 (1.005-1.025); Urobilinogen NORMAL mg/dL (0-1)
--- NOTE | 2017-10-31 10:25 | OP ---
SURGERY DATE/TIME: 10/31/2017 0707 PREOPERATIVE DIAGNOSES: 1) Term intrauterine . 2) History of prior section. 3) Desires permanent sterilization. 4) Bicornuate uterus. POSTOPERATIVE DIAGNOSES: 1) Term intrauterine . 2) History of prior section. 3) Desires permanent sterilization. 4) Bicornuate uterus. PROCEDURES: 1) Repeat low transverse section. 2) Bilateral tubal ligation. SURGEON: Ashwin Kenny M.D. ESTIMATED BLOOD LOSS: 400 cc. IV FLUIDS: 800 cc of crystalloid. URINE OUTPUT: 100 cc of clear straw-colored urine. ANESTHESIA: Spinal by Cristi Serrano CRNA. SPECIMENS: Bilateral fallopian tube segments. DESCRIPTION OF PROCEDURE: After informed written consent was obtained, the patient was taken to the operating room. We discussed the permanent nature of bilateral tubal ligation prior to the procedure and she had previously signed consent in the office on 03/15/[address] Garcia and this was reviewed and available on the chart. She went to the OR and underwent spinal anesthesia. She was prepped and draped in the usual sterile fashion. Adequate level of anesthesia was assessed and a low transverse skin incision was made by knife and carried to the subcutaneous fat to the level of the fascia. The fascia was nicked on both sides of the midline and extended in horizontal fashion using curved Hoyt scissors. The superior free edge of the fascia was grasped with Irasema clamps and the underlying rectus muscles were dissected free. The same was repeated inferiorly. Next, the peritoneal cavity was opened and extended in horizontal fashion. Bladder blade was then inserted. Bladder flap was created over the lower uterine segment. A horizontal uterine incision was made by knife and carried down to the amniotic membranes which were carefully artificially ruptured with clear fluid. A viable female was delivered from the vertex presentation with a strong cry immediately upon delivery. Oropharynx and nares were bulb suctioned free. The cord was clamped and cut and then Dr. Garcia robed and scrubbed to attend to the baby. The placenta was manually removed from the uterus and the uterus was exteriorized. The uterine cavity was sponge curetted clean with lap sponge. The uterine incision was closed with #1 chromic in a running locked fashion. Good closure and good hemostasis were achieved. Next, the right fallopian tube was identified and carried down to the fimbrial edge. Tube was grasped with [place] and electrocautery was used to make a window in the mesoappendix. Proximal and distal tube segments were ligated with chromic tie and the interceding tube segment was dissected free with Metzenbaum scissors. The free edge of the tube was visible and cauterized with electrocautery in both proximal and distal ends. The same was repeated on the left side. There were no complications. The areas were noted to be hemostatic. The uterus was then returned to the peritoneal cavity after the posterior cul-de-sac was wiped free of blood and clot with moist lap sponge. Lateral gutters were wiped free of blood and clot. Again, the uterine incision was inspected and noted to be hemostatic. There was no bleeding from the fallopian tube segments upon inspection either. Next, the fascia was closed with 0 Vicryl in a running fashion with good closure and good hemostasis. Subcutaneous fat was irrigated with warm, sterile saline and any areas of bleeding were cauterized with electrocautery. Finally the skin layer was closed with 4-0 undyed Vicryl in a running subcuticular fashion. Steri-Strips and occlusive dressing were placed over the incision. The patient was transferred to the recovery room in excellent condition.
[2017-10-31] MEDS ORDERED: Astramorph-Pf 5 MG/10 ML IV ONE (10:45)
[2017-10-31] MEDS: MOTRIN 400 MG PO PRN ×3 (10:45→22:29)
[2017-10-31] MEDS ORDERED: Ketamine HCl 50 MG/ML IV ONE (10:45)
[2017-10-31] MEDS ORDERED: Versed 2 MG/2 ML Injection IV ONE (10:45)
[2017-10-31] MEDS: PERCOCET TABLET 5/325MG PO PRN ×2 (13:58→19:26)
[2017-10-31] MEDS: Colace 100 MG PO SCH ×2 (13:58→22:30)
[2017-10-31] MEDS: FERREX 150 PO SCH (13:58)
[2017-11-01] MEDS: Dextrose 5%-Lr IV Solution 1000 ML 1,000 ML IV SCH (00:48)
[2017-11-01] MEDS: PERCOCET TABLET 5/325MG PO PRN ×2 (01:35→07:28)
[2017-11-01] MEDS: MOTRIN 400 MG PO PRN ×4 (05:00→22:30)
[2017-11-01 05:43] LABS: Granulocyte Absolute (ANC) 12.95 (1.4-6.9); Hematocrit 27.1 % (35-47); Hemoglobin 8.6 gm/dl (12.0-16.0); Mean Cell Volume 80.4 fl (78-100); Mean Corpuscular Hemoglobin 25.5 pg (26-32); Mean Corpuscular Hgb Concent. 31.7 g/dl (32-36); Mean Platelet Volume 9.3 fl (6-9.5); Platelet Count 252 K/mm3 (150-450); Red Blood Count 3.37 M/mm3 (4.1-5.4); Red Cell Distribution Width 14.8 % (11.5-14.0); White Blood Count 17.3 K/mm3 (4.0-10.5)
[2017-11-01] MEDS ORDERED: Phenergan 25 MG INJ IM PRN (08:00)
[2017-11-01] MEDS ORDERED: DEMEROL 75 MG IM PRN (08:00)
[2017-11-01 08:09] VITALS: O2SAT 99
[2017-11-01 09:10] LABS: ATYPICAL LYMPHS 4 %; BAND 3 % (0.0-2.0); Eosinophil 1 % (0.00-3.0); Lymphocytes 10 % (24-44); Monocyte 9 % (0.0-12.0); Neutrophils 73 % (36.0-66.0); Total Cells Counted 100
[2017-11-01 09:11] LABS: Platelet Estimate NORMAL (NORMAL)
[2017-11-01 09:17] LABS: ANISOCYTOSIS 1+; Polychromasia RARE
[2017-11-01] MEDS: FERREX 150 PO SCH (09:43)
[2017-11-01] MEDS: Colace 100 MG PO SCH ×2 (09:43→22:30)
[2017-11-01] MEDS: NORCO 5/325 MG PO PRN ×3 (13:26→23:11)
[2017-11-01] MEDS ORDERED: Ambien 10 MG PO PRN (23:37)
[2017-11-02] MEDS: MOTRIN 400 MG PO PRN (04:32)
[2017-11-02] MEDS: NORCO 5/325 MG PO PRN ×2 (04:33→08:27)
--- NOTE | 2017-11-02 07:26 | PCM.DS ---
Discharge Summary Date of Admission: 10/31/17 05:20 Admitting Physician: ANGELI MORRELL Consults: Consults on Case 10/31/17 05:00 Notify Anesthesia Provider ROUTINE Notify Physician OF ADMISSION Primary Care Provider: ANGELI MORRELL Allergies Allergies strawberry [[place]] Allergy (Verified 10/12/17 16:21) WATERMELON Allergy (Uncoded 03/23/14 19:00) Hospital Summary - Hospital Course Hospital Course: Pt came in as 21 yo for repeat c/s. Has bicornuate uterus. and BTL by Dr. Kenny with no complications (see operative note for full details). She has had some persistent pain particularly in the R of the incision. Pain worse when up out of bed. Bleeding has been within normal limits. Tolerating po. - Vitals & Intake/Output Vital Signs: Vital Signs Temperature 97.5 F 11/02/17 02:00 Pulse Rate 85 11/02/17 02:00 Respiratory Rate 18 11/02/17 02:00 Blood Pressure 109/55 11/02/17 02:00 O2 Sat by Pulse Oximetry 99 11/01/17 08:00 Intake & Output: Intake & Output 10/30/17 10/31/17 11/01/17 11/02/17 11:59 11:59 11:59 11:59 Intake Total 3289 850 Output Total 4450 Balance -1161 850 Weight 100.244 kg - Lab Result Diagrams: 11/01/17 05:35 Lab Results-Last 24 Hrs: Lab Results-Last 24 Hours 11/01/17 Range/Units 05:35 Segmented Neutrophils 73 H (36.0-66.0) % Band Neutrophils 3 H (0.0-2.0) % Lymphocytes (Manual) 10 L (24-44) % Monocytes (Manual) 9 (0.0-12.0) % Eosinophils (Manual) 1 (0.00-3.0) % Atypical Lymphocytes 4 % Platelet Estimate NORMAL (NORMAL) RBC Morphology ABNORMAL Polychromasia RARE Anisocytosis 1+ Micro Results-Entire Visit: Microbiology 10/31/17 07:20 Urine Culture - Final Urine, Catheterized NO GROWTH Discharge Exam General Appearance: no apparent distress, alert Neurologic Exam: oriented x 3, cooperative Skin Exam: normal color, warm, dry, No rash Respiratory Exam: normal breath sounds, lungs clear, No crackles/rales, No rhonchi, No wheezing Cardiovascular Exam: regular rate/rhythm, normal heart sounds, No murmur Gastrointestinal/Abdomen Exam: soft, tenderness (with fundal palptaion. fundus firm at the umbilicus.) Extremity Exam: normal inspection, No pedal edema, No swelling Final Diagnosis/Problem List - Final Discharge Diagnosis/Problem (1) delivery delivered Current Visit: No Status: Acute Assessment & Plan: Home today; I did offer an extra day's stay but she prefers to go home. Will try 2 norco today at one time while she's up to see if that controls her pain. She needs to f/u in 1 week. (2) Anemia Current Visit: No Status: Chronic Assessment & Plan: Hgb was initially 10.0, is now 8.6. home on iron pills. (3) Bicornuate uterus Current Visit: No Status: Chronic - Discharge Disposition: Home, Self-Care Condition: Good Prescriptions: New Docusate Sodium 100 mg [Colace 100 MG] 100 mg PO BID #60 capsule Ferrous Sulfate 325 mg PO BID #60 tablet. Ibuprofen 800 mg PO TID PRN #35 tablet PRN Reason: Pain Hydrocodone Bit/Acetaminophen [[place] 10-325 Tablet] 1 - 2 each PO Q4H PRN # 35 tablet MDD 8 PRN Reason: Severe Pain Discontinued Amoxicillin/Potassium Clav [Augmentin 500-125 Tablet] 1 each PO TID #21 tablet Follow up with: ANGELI MORRELL [Primary Care Provider] - 1 Week
[2017-11-02] MEDS: FERREX 150 PO SCH (08:27)
[2017-11-02] MEDS: Colace 100 MG PO SCH (08:27)
[2017-11-02 10:06] VITALS: BP 133/79; PULSE 97
== END 2017-11-02 09:40 | disposition home or self-care (01) | DRG 766 ==
LOC: OB 05:20
PROVIDERS: ADMIT Family Medicine; ATTEND Family Medicine
PROC: 0UL70ZZ Occlusion of Bilateral Fallopian Tubes, Open Approach (ICD-10-PCS; principal; 2017-10-31)
PROC: 10D00Z1 Extraction of Products of Conception, Low, Open Approach (ICD-10-PCS; 2017-10-31)
DX: O34.211 Maternal care for low transverse scar from previous cesarean delivery (principal); Z37.0 Single live birth; Z3A.39 39 weeks gestation of pregnancy; Q51.3 Bicornate uterus; D64.9 Anemia, unspecified; Z30.2 Encounter for sterilization
CPT/HCPCS: 36415; 64488; 76937; 76942; 80307; 81000; 81002; 85025; 85027; 85610; 85730; 86850; 86900; 86901; 87086; 88302; 94799; J0690; J2250; J2274; L0625; A9270-GY

== ENCOUNTER 2019-06-23 19:15 | Emergency (ER) | payer MEDICAID, OTHER ==
[2019-06-23] MEDS ORDERED: solu-MEDROL 125 MG IM ONE (20:37)
--- NOTE | 2019-06-23 20:37 | ERPHSYRPT ---
- History of Present Illness Time Seen by Provider: 06/23/19 19:45 Source: patient, family Exam Limitations: no limitations Patient Subjective Stated Complaint: pt states that she has had cough and congestion for past week and half, pt states that she is coughing up green/ yellow discharge, pt states that she feels like she is unable to catch her breath and feels like something is stuck in her chest, pt states that her earache began 2 days ago, pt states pain that radiates to her throat, pt states that her ear pops and after it pops it hurts worse, pt states that she took ibuprofen at 1600 Triage Nursing Assessment: pt ambulated into the er, pt is axo x4, pt has redness to the left ear, lymph node is swollen on left side, pt has dry hacking cough, pt is tachycardic Physician History: 23 y/o white female present with productive cough of greenish yellow phlegm. additionally, she has a left earache and sore throat. no n/v/d. no abd pain. Timing/Duration: gradual onset Severity: moderate ENT Location: ear (L), throat Modifying Factors: Improves With: coughing Associated Symptoms: ear pain (L), cough, swollen glands (left submandibular), sore throat Allergies/Adverse Reactions: strawberry [[place]] Allergy (Verified 06/23/19 19:54) WATERMELON Allergy (Uncoded 03/23/14 19:00) Hx Tetanus, Diphtheria Vaccination/Date Given: Yes Hx Influenza Vaccination/Date Given: No Hx Pneumococcal Vaccination/Date Given: No - Review of Systems Constitutional: No Symptoms Eyes: No Symptoms Ears, Nose, & Throat: Ear Pain (left) Respiratory: Cough Cardiac: No Symptoms Abdominal/Gastrointestinal: No Symptoms Genitourinary Symptoms: No Symptoms Musculoskeletal: No Symptoms Skin: No Symptoms Neurological: No Symptoms Psychological: No Symptoms Endocrine: No Symptoms Hematologic/Lymphatic: No Symptoms Immunological/Allergic: No Symptoms All Other Systems: Reviewed and Negative - Past Medical History Pertinent Past Medical History: Yes Neurological History: No Pertinent History ENT History: No Pertinent History Cardiac History: Other GI Medical History: No Pertinent History History: No Pertinent History Psycho-Social History: No Pertinent History Female Reproductive Disorders: Other Other Medical History: HERPES, MISCARRIAGES, 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, valve leakage, heart murmur - Past Surgical History Past Surgical History: Yes Neuro Surgical History: No Pertinent History Cardiac: No Pertinent History Respiratory: No Pertinent History Gastrointestinal: No Pertinent History Genitourinary: No Pertinent History Musculoskeletal: No Pertinent History Female Surgical History: Section Other Surgical History: WISDOM TEETH REMOVED - Social History Smoking Status: Current every day smoker How long have you smoked: 10 yrs Exposure to second hand smoke: Yes Drug Use: none Patient Lives Alone: No - Female History Hx Now: No (tubal) - Nursing Vital Signs Nursing Vital Signs: Initial Vital Signs Temperature 98.7 F 06/23/19 19:42 Pulse Rate 126 H 06/23/19 19:42 Respiratory Rate 22 06/23/19 19:42 Blood Pressure 128/81 06/23/19 19:42 O2 Sat by Pulse Oximetry 100 06/23/19 19:42 Pain Scale Pain Intensity 8 - Physical Exam General Appearance: no apparent distress, alert, anxiety Eye Exam: bilateral eye: normal inspection, PERRL, EOMI Ear Exam: right ear: canal normal, TM normal, left ear: tenderness, TM red, bilateral ear: auricle normal Nasal Exam: normal inspection Throat Exam: pharynx normal, pharynx swelling, No dental tenderness, No tongue swollen, No uvula swelling, No voice changes Neck Exam: non-tender, supple, full range of motion, lymphadenopathy (L) Cardiovascular/Respiratory Exam: chest non-tender, normal breath sounds, regular rate/rhythm, heart sounds normal, no respiratory distress Abdominal Exam: non-tender Neurologic Exam: alert, oriented x 3, cooperative, 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 II-XII nml as tested Skin Exam: normal color, warm, dry SpO2 Interpretation: normal SpO2: 100 O2 Delivery: Room Air - Course Nursing assessment & vital signs reviewed: Yes Ordered Tests: Medication Summary Discontinued Medications Generic Name Dose Route Start Last Admin Trade Name Freq PRN Reason Stop Dose Admin Hydrocodone Bitart/Acetaminophen 10 ml 06/23/19 20:38 Hydrocodone-Acetamin 2.5-108/5 Ml Solution PO 06/23/19 20:39 STAT STA Ceftriaxone Sodium 1,000 mg 06/23/19 20:38 Rocephin 1000 Mg Inj IM 06/23/19 20:39 STAT ONE Methylprednisolone Sodium Succinate 125 mg 06/23/19 20:37 Solu-Medrol 125 Mg IM 06/23/19 20:38 STAT ONE - Progress Progress: unchanged Counseled pt/family regarding: diagnosis, need for follow-up - Departure Departure Disposition: Home Clinical Impression: Left otitis media, Bronchitis, Pharyngitis Condition: Stable Critical Care Time: No Referrals: ANGELI MORRELL [Primary Care Provider] - Additional Instructions: drink plenty of fluids. follow up with primary doctor for further management Prescriptions: Azithromycin 250 mg [Zithromax 250 MG TABLET] 250 mg PO ZPACK #6 tablet Hydrocodone Bit/Acetaminophen [Hydrocodone-Acetaminophen Soln] 10 ml PO Q6H # 120 ml Prednisone 10 mg [Deltasone 10 mg] 10 mg PO TID #12 tablet
[2019-06-23] MEDS ORDERED: HYDROCODONE-ACETAMIN 2.5-108/5 ML SOLUTION PO STA (20:38)
[2019-06-23] MEDS ORDERED: Rocephin 1000 MG INJ IM ONE (20:38)
[2019-06-23] MEDS ORDERED: solu-MEDROL 125 MG ONE (20:47)
[2019-06-23] MEDS ORDERED: Rocephin 1000 MG INJ ONE (20:47)
[2019-06-23] MEDS ORDERED: HYDROCODONE-ACETAMIN 2.5-108/5 ML SOLUTION ONE (20:47)
[2019-06-23 21:12] VITALS: BP 122/61; PULSE 84; O2SAT 99
== END 2019-06-23 21:10 | disposition home or self-care (01) ==
LOC: ED 19:15
DX: H66.92 Otitis media, unspecified, left ear (principal); J40 Bronchitis, not specified as acute or chronic; J02.9 Acute pharyngitis, unspecified; R05 Cough
CPT/HCPCS: 96372; 99284; J0696; J2930; A9270-GY

== ENCOUNTER 2019-11-02 09:10 | Emergency (ER) | payer OTHER ==
[2019-11-02] MEDS ORDERED: Zofran 4 MG/2 ML VIAL IV ONE (09:39)
[2019-11-02] MEDS ORDERED: Sodium Chloride 0.9% 1000 ML 1,000 ML IV STA (09:39)
[2019-11-02] MEDS ORDERED: MORPHINE SULFATE 4 MG INJ IV ONE (09:39)
--- NOTE | 2019-11-02 09:44 | ERPHSYRPT ---
- History of Present Illness Time Seen by Provider: 11/02/19 09:31 Historian: patient Patient Subjective Stated Complaint: Pt stated that she was asleep and was awaken by severe pain in her medial back that radiates to both sides and under her breasts, pt states that it hurts to breath, pt stated that this happened about a week ago but would last only a couple of hours and then go away and it went on for about 3 days, she said that the pain was tolerable then but it is not now Triage Nursing Assessment: Pt brought here by a friend, pt walked into the ER in noticable pain, vitals wnl, thinks she missed her period this month, had a tubal at the age of 16, pulses normal, last BM last night, last intake 2200, bowel sounds heard in all 4, lungs clear, pain with palpatation to the RUQ, still has appendix and gallbladder, pain with palpatation to the medial back and tisha flanks Physician History: 23 years old female presented in the ER with chief complaint of sudden onset mid back pain with radiation to bilateral upper quadrant more on the right side deep breathing, coughing, no significant relieving factors. Patient report having similar pain last week multiple times which improved after couple of hours. Denies any fever or chills. No shortness of breath. No pain associated. Timing/Duration: today Activities at Onset: sleep Quality: sharpness, stabbing Abdominal Pain Onset Location: RUQ, LUQ, epigastric, flank Pain Radiation: no radiation Severity of Pain-Max: severe Severity of Pain-Current: severe Modifying Factors: Improves With: coughing, movement, palpation Associated Symptoms: back, No chest pain, No diaphoresis, No fever/chills, No heartburn, No nausea, No neck pain, No shortness of breath, No vomiting Previous symptoms: same symptoms as today Allergies/Adverse Reactions: strawberry [[place]] Allergy (Verified 11/02/19 09:29) WATERMELON Allergy (Uncoded 11/02/19 09:29) Home Medications: No Reportable Medications [No Reported Medications] 11/02/19 [History] Hx Tetanus, Diphtheria Vaccination/Date Given: Yes Hx Influenza Vaccination/Date Given: No Hx Pneumococcal Vaccination/Date Given: No Travel Risk - International Travel Have you traveled outside of the country in past 3 weeks: No Have you or anyone close to you been diagnosed with or: No Do your reside in a community with a known COVID-19 case?: Yes If Yes where:: pink - Coronavirus Screening Has patient experienced Coronavirus symptoms: No - Review of Systems Constitutional: No Symptoms Eyes: No Symptoms Ears, Nose, & Throat: No Symptoms Respiratory: No Symptoms Cardiac: No Symptoms Abdominal/Gastrointestinal: Abdominal Pain Genitourinary Symptoms: No Symptoms Musculoskeletal: Back Pain Neurological: No Symptoms Psychological: No Symptoms Endocrine: No Symptoms Hematologic/Lymphatic: No Symptoms Immunological/Allergic: No Symptoms - Past Medical History Pertinent Past Medical History: Yes Neurological History: No Pertinent History ENT History: No Pertinent History Cardiac History: Other GI Medical History: No Pertinent History History: No Pertinent History Psycho-Social History: No Pertinent History Female Reproductive Disorders: Other Other Medical History: HERPES, MISCARRIAGES, 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, valve leakage, heart murmur - Past Surgical History Past Surgical History: Yes Neuro Surgical History: No Pertinent History Cardiac: No Pertinent History Respiratory: No Pertinent History Gastrointestinal: No Pertinent History Genitourinary: No Pertinent History Musculoskeletal: No Pertinent History Female Surgical History: Section Other Surgical History: WISDOM TEETH REMOVED - Social History Smoking Status: Current every day smoker How long have you smoked: 10 yrs Exposure to second hand smoke: Yes Drug Use: none Patient Lives Alone: No - Female History Hx Last Menstrual Period: unsure Hx Now: No (tubal) - Nursing Vital Signs Nursing Vital Signs: Initial Vital Signs Temperature 97.7 F 11/02/19 09:16 Pulse Rate 83 11/02/19 09:16 Blood Pressure 124/98 11/02/19 09:16 O2 Sat by Pulse Oximetry 99 11/02/19 09:16 Pain Scale Pain Intensity [Medial Back] 9 Pain Intensity 6 - Physical Exam General Appearance: no apparent distress Eye Exam: PERRL/EOMI, eyes nml inspection Ears, Nose, Throat Exam: normal ENT inspection, TMs normal, pharynx normal Neck Exam: normal inspection, non-tender, supple, full range of motion Respiratory Exam: normal breath sounds, lungs clear, No respiratory distress Cardiovascular Exam: regular rate/rhythm, normal heart sounds, normal peripheral pulses Gastrointestinal/Abdomen Exam: soft, tenderness (RUQ ), guarding, other ( Positive Garcia's sign), No rebound Back Exam: normal inspection, CVA tenderness Extremity Exam: normal inspection Neurologic Exam: alert, oriented x 3, cooperative Skin Exam: normal color SpO2 Interpretation: normal SpO2: 99 Ordered Tests: Active Orders 24 hr Category Date Time Status IV Insertion STAT Care 11/02/19 09:39 Active ABDOMEN AND PELVIS W/0 CONTRAS [CT] Stat Exams 11/02/19 10:03 Taken CBC W DIFF Stat Lab 11/02/19 09:50 Completed CMP Stat Lab 11/02/19 09:50 Completed CULTURE,URINE Stat Lab 11/02/19 09:50 Received HCG,QUALITATIVE URINE Stat Lab 11/02/19 09:50 Completed LIPASE Stat Lab 11/02/19 09:50 Completed UA W/RFX UR CULTURE Stat Lab 11/02/19 09:50 Completed Medication Summary Discontinued Medications Generic Name Dose Route Start Last Admin Trade Name Freq PRN Reason Stop Dose Admin Sodium Chloride 1,000 mls @ 999 mls/hr 11/02/19 09:39 11/02/19 10:53 Sodium Chloride 0.9% 1000 Ml IV 11/02/19 10:39 Infused .Q1H1M STA Infusion Sodium Chloride Confirm 11/02/19 09:46 Sodium Chloride 0.9% 1000 Ml Administered 11/02/19 09:47 Dose 1,000 mls @ ud .ROUTE .STK-MED ONE Morphine Sulfate 4 mg 11/02/19 09:39 11/02/19 09:47 Morphine Sulfate 4 Mg Inj IV 11/02/19 09:40 4 mg STAT ONE Administration Morphine Sulfate Confirm 11/02/19 09:46 Morphine Sulfate 4 Mg Inj Administered 11/02/19 09:47 Dose 4 mg .ROUTE .STK-MED ONE Ondansetron HCl 4 mg 11/02/19 09:39 11/02/19 09:47 Zofran 4 Mg/2 Ml Vial IV 11/02/19 09:40 4 mg STAT ONE Administration Ondansetron HCl Confirm 11/02/19 09:46 Zofran 4 Mg/2 Ml Vial Administered 11/02/19 09:47 Dose 4 mg .ROUTE .STK-MED ONE Lab/Rad Data: Laboratory Result Diagrams 11/02/19 09:50 11/02/19 09:50 Laboratory Results 11/02/19 11/02/19 11/02/19 Range/Units 09:50 09:50 09:50 WBC (4.0-10.5) K/mm3 RBC (4.1-5.4) M/mm3 Hgb (12.0-16.0) gm/dl Hct (35-47) % MCV (78-100) fl MCH (26-32) pg MCHC (32-36) g/dl RDW (11.5-14.0) % Plt Count (150-450) K/mm3 MPV (7.5-11.0) fl Gran % (36.0-66.0) % Eos # (Auto) (0-0.5) Absolute Lymphs (auto) (1.0-4.6) Absolute Monos (auto) (0.0-1.3) Lymphocytes % (24.0-44.0) % Monocytes % (0.0-12.0) % Eosinophils % (0.00-5.0) % Basophils % (0.0-0.4) % Absolute Granulocytes (1.4-6.9) Basophils # (0-0.4) Sodium 142 (137-145) mmol/L Potassium 4.0 (3.5-5.1) mmol/L Chloride 111 H (98-107) mmol/L Carbon Dioxide 20 L (22-30) mmol/L Anion Gap 14.2 (5-15) MEQ/L BUN 22 H (7-17) mg/dL Creatinine 0.76 (0.52-1.04) mg/dL Estimated GFR > 60.0 ML/MIN Glucose 102 (74-106) mg/dL Calcium 10.3 H (8.4-10.2) mg/dL Total Bilirubin 0.40 (0.2-1.3) mg/dL AST 21 (14-36) U/L ALT 19 (0-35) U/L Alkaline Phosphatase 88 (38-126) U/L Serum Total Protein 8.2 (6.3-8.2) g/dL Albumin 4.6 (3.5-5.0) g/dL Lipase 187 (23-300) U/L Urine Color YELLOW (YELLOW) Urine Appearance SLIGHTLY CLOUDY (CLEAR) Urine pH 7.0 (5-6) Ur Specific [place] 1.019 (1.005-1.025) Urine Protein NEGATIVE (Negative) Urine Ketones NEGATIVE (NEGATIVE) Urine Blood NEGATIVE (0-5) Ilya/ul Urine Nitrite NEGATIVE (NEGATIVE) Urine Bilirubin NEGATIVE (NEGATIVE) Urine Urobilinogen NEGATIVE (0-1) mg/dL Ur Leukocyte Esterase TRACE (NEGATIVE) Urine WBC (Auto) 3-5 (0-5) /HPF Urine RBC (Auto) 0-2 (0-2) /HPF U Epithel Cells (Auto) RARE (FEW) /HPF Urine Bacteria (Auto) NONE (NEGATIVE) /HPF Urine Mucus (Auto) SLIGHT (NEGATIVE) /HPF Urine Culture Reflexed YES (NO) Urine Glucose NEGATIVE (NEGATIVE) mg/dL Urine HCG, Qual NEGATIVE (Negative) 11/02/19 Range/Units 09:50 WBC 9.4 (4.0-10.5) K/mm3 RBC 4.35 (4.1-5.4) M/mm3 Hgb 12.6 (12.0-16.0) gm/dl Hct 37.1 (35-47) % MCV 85.3 (78-100) fl MCH 29.0 (26-32) pg MCHC 34.0 (32-36) g/dl RDW 13.2 (11.5-14.0) % Plt Count 347 (150-450) K/mm3 MPV 10.0 (7.5-11.0) fl Gran % 68.3 H (36.0-66.0) % Eos # (Auto) 0.19 (0-0.5) Absolute Lymphs (auto) 1.89 (1.0-4.6) Absolute Monos (auto) 0.87 (0.0-1.3) Lymphocytes % 20.1 L (24.0-44.0) % Monocytes % 9.3 (0.0-12.0) % Eosinophils % 2.0 (0.00-5.0) % Basophils % 0.3 (0.0-0.4) % Absolute Granulocytes 6.40 (1.4-6.9) Basophils # 0.03 (0-0.4) Sodium (137-145) mmol/L Potassium (3.5-5.1) mmol/L Chloride (98-107) mmol/L Carbon Dioxide (22-30) mmol/L Anion Gap (5-15) MEQ/L BUN (7-17) mg/dL Creatinine (0.52-1.04) mg/dL Estimated GFR ML/MIN Glucose (74-106) mg/dL Calcium (8.4-10.2) mg/dL Total Bilirubin (0.2-1.3) mg/dL AST (14-36) U/L ALT (0-35) U/L Alkaline Phosphatase (38-126) U/L Serum Total Protein (6.3-8.2) g/dL Albumin (3.5-5.0) g/dL Lipase (23-300) U/L Urine Color (YELLOW) Urine Appearance (CLEAR) Urine pH (5-6) Ur Specific [place]ane (1.005-1.025) Urine Protein (Negative) Urine Ketones (NEGATIVE) Urine Blood (0-5) Ilya/ul Urine Nitrite (NEGATIVE) Urine Bilirubin (NEGATIVE) Urine Urobilinogen (0-1) mg/dL Ur Leukocyte Esterase (NEGATIVE) Urine WBC (Auto) (0-5) /HPF Urine RBC (Auto) (0-2) /HPF U Epithel Cells (Auto) (FEW) /HPF Urine Bacteria (Auto) (NEGATIVE) /HPF Urine Mucus (Auto) (NEGATIVE) /HPF Urine Culture Reflexed (NO) Urine Glucose (NEGATIVE) mg/dL Urine HCG, Qual (Negative) - Progress Progress: improved, pain not gone completely, re-examined Progress Note: 11/02/19 11:56 23 years old is evaluated for right upper quadrant pain. She is given IV fluid and pain medications, on reevaluation her pain is much improved. She still have tenderness on palpation in the right upper quadrant. She has normal white count, normal liver functions. I have obtained CT which showed distended gallbladder with 1.4 cm stone closer to the neck of gallbladder and another 1.6 cm and fundus area with gallbladder wall thickening but no pericholecystic fluid yet. I believe patient has acute early cholecystitis. Discussed with Dr. Vasquez Cerda, reviewed labs and patient finding, recommended admission to medical services and will plan surgical intervention soon. I have discussed with Dr. De La Rosa & patient is being admitted. Later I went to patient room and she reported that there is absolutely no way that she can stay in the hospital as she have nobody to take care of her kids. She have to drop her kids to her mother at [place] and then will think about coming back. Discussed with patient in detail about risk of leaving AGAINST MEDICAL ADVICE with worsening of her symptoms including but not limited to gallbladder rupture, peritonitis, sepsis but she still wants to go. Discussed with Dr. Cerda who recommended outpatient follow-up if patient signs AMA. Information is given to the patient. Discussed with patient again about possible stay but she still adamant about leaving. She walked out of the ER in a stable condition. Discussed with Dr.: Eliezer, Other (Paco Cerda) Will see patient in: hospital (observation) Counseled pt/family regarding: lab results, diagnosis, rad results - Departure Departure Disposition: AMA Clinical Impression: Acute cholecystitis Condition: Stable Critical Care Time: No Referrals: ANGELI MORRELL [Primary Care Provider] - VASQUEZ CERDA MD [ASSOCIATE STAFF] - (1 day for reevaluation) Instructions: Gallstones (DC) Additional Instructions: Take Tylenol/ibuprofen as needed. Follow-up with general surgery for reevaluation in the morning. Return to ER for any worsening.
[2019-11-02] MEDS ORDERED: Sodium Chloride 0.9% 1000 ML 1,000 ML ONE (09:46)
[2019-11-02] MEDS ORDERED: MORPHINE SULFATE 4 MG INJ ONE (09:46)
[2019-11-02] MEDS ORDERED: Zofran 4 MG/2 ML VIAL ONE (09:46)
[2019-11-02 09:53] LABS: Appearance SLIGHTLY CLOUDY (CLEAR); Bilirubin NEGATIVE (NEGATIVE); Blood NEGATIVE Ery/ul (0-5); Epithelial Cells RARE /HPF (FEW); Glucose NEGATIVE (NEGATIVE); Ketones NEGATIVE (NEGATIVE); Leukocyte Esterase TRACE (NEGATIVE); Mucus SLIGHT /HPF (NEGATIVE); Nitrite NEGATIVE (NEGATIVE); Protein,Urine Dip NEGATIVE (Negative); RBC 0-2 /HPF (0-2); Specific Gravity 1.019 (1.005-1.025); Urobilinogen NEGATIVE mg/dL (0-1)
[2019-11-02 09:54] LABS: BASOPHIL % 0.3 % (0.0-0.4); Basophil (Absolute #) 0.03 (0-0.4); Eosinophil (Absolute #) 0.19 (0-0.5); Hematocrit 37.1 % (35-47); Hemoglobin 12.6 gm/dl (12.0-16.0); Lymphocyte (Absolute #) 1.89 (1.0-4.6); Lymphocytes % 20.1 % (24.0-44.0); Mean Cell Volume 85.3 fl (78-100); Monocyte (Absolute #) 0.87 (0.0-1.3); Monocytes % 9.3 % (0.0-12.0); Neutrophil % 68.3 % (36.0-66.0); Platelet Count 347 K/mm3 (150-450); Red Blood Count 4.35 M/mm3 (4.1-5.4); Red Cell Distribution Width 13.2 % (11.5-14.0); White Blood Count 9.4 K/mm3 (4.0-10.5)
[2019-11-02 10:01] LABS: ALBUMIN 4.6 g/dL (3.5-5.0); ALKALINE PHOSPHATASE 88 U/L (38-126); ANION GAP 14.2 MEQ/L (5-15); BLOOD UREA NITROGEN 22 mg/dL (7-17); CHLORIDE 111 mmol/L (98-107); Calcium 10.3 mg/dL (8.4-10.2); Carbon Dioxide 20 mmol/L (22-30); Creatinine 1 0.76 mg/dL (0.52-1.04); Glucose 102 mg/dL (74-106); LIPASE 187 U/L (23-300); SGOT/AST 21 U/L (14-36); SGPT/ALT 19 U/L (0-35); SODIUM 142 mmol/L (137-145); Total Protein 8.2 g/dL (6.3-8.2)
[2019-11-02 12:23] VITALS: BP 110/76; PULSE 88
[2019-11-02 16:21] VITALS: O2SAT 99
--- NOTE | 2019-11-02 19:35 | XRAY ---
Indication: Right abdomen pain. Hematuria. Multiple contiguous axial images obtained through the abdomen and pelvis without contrast as ordered. Comparison: None Lung bases are clear. Heart is not enlarged. Noncontrasted stomach and bowel loops appear nonobstructed. Normal appendix. Moderately distended gallbladder with at least 2 gallstones, largest 2 cm near the neck of the gallbladder. No abnormal biliary distention. Remaining liver, pancreas, spleen, adrenal glands, kidneys, ureters, bladder, uterus, and aorta appear unremarkable for noncontrast exam. Osseous structures intact. No ventral or inguinal hernias. Impression: 1. Distended gallbladder with cholelithiasis. Gallbladder sonogram may yield further information. 2. Remaining CT abdomen/pelvis without contrast exam is negative. Comment: Preliminary interpretation was made by [facility]. No critical discrepancy.
== END 2019-11-02 12:24 | disposition home or self-care (01) ==
LOC: ED 09:10
DX: K81.0 Acute cholecystitis (principal)
CPT/HCPCS: 36000; 36415; 74176; 80053; 81001; 83690; 84703; 85025; 87086; 96360; 96374; 96375; 99284; J2270; J2405